=== PATIENT | female | born 2000 | race Hispanic/Latino ===

== ENCOUNTER → 2020-10-19 | Outpatient (CLI) | payer MEDICAID | END | disposition home or self-care (01) | LOC: RAH 12:57 | PROVIDERS: ATTEND Family Medicine | DX: N63.20 Unspecified lump in the left breast, unspecified quadrant (principal) | CPT/HCPCS: 76641 ==

== ENCOUNTER → 2020-11-04 | Outpatient (CLI) | payer MEDICAID ==
[~2020-11-04] MED LIST: SODIUM BICARB 50MEQ 50ML VIAL 50 ML ONE
[2020-11-04 08:29] LABS: INR 0.94 (0.85-1.15); PROTHROMBIN TIME 10.3 SEC (9.6-11.6)
[2020-11-04 08:30] LABS: PARTIAL THROMBOPLASTIN TIME 25.6 SEC (26.3-35.5)
== END | disposition home or self-care (01) ==
LOC: RAH 07:35
PROVIDERS: ATTEND Family Medicine
DX: D24.2 Benign neoplasm of left breast (principal); N63.22 Unspecified lump in the left breast, upper inner quadrant; N60.12 Diffuse cystic mastopathy of left breast; Z79.01 Long term (current) use of anticoagulants
CPT/HCPCS: 19083; 36415; 85610; 85730; A4215 ×3; J3490; 19000; 76942